=== PATIENT | female | born 1990 | race African-American/Black ===

== ENCOUNTER 2016-03-29 00:37 | Inpatient (IN) | payer BC, OTHER ==
[2016-03-29] VITALS (36 sets, daily range): BP systolic 80–128; BP diastolic 52–85; PULSE 83–123; RESP 18–20; TEMP 97.9
[~2016-03-29] VITALS: Ht 157.5 cm; Wt 88.9 kg
[~2016-03-29 00:37] MED LIST: CYCL5TAB PO; FERR325T PO; PREN0.01 PO
--- NOTE | 2016-03-29 01:46 | PD ---
HPI Chief Complaint Vaginal pressure Date Seen: Mar 29, 2016 Time Seen: 01:10 Travel History International Travel<30 Days: No Contact w/Intl Traveler<30Days: No Known Affected Area: No History of Present Illness HPI 25 year old at 38/1 presents to OB ED with complaints of vaginal pressure and low back pain. +FM. Reports she is having contractions and they are becoming slightly more intense with shorter intervals. Denies loss of fluid. She does states she had a small amount of vaginal bleeding this past Thursday but no vaginal bleeding since then. Denies dysuria, headaches, visual changes, edema. Rubella immune. Hep B negative. GBS negative. PCP is Dr. Gabo Avery. Para: 0 : 2 History Past Medical History Narrative Medical Anemia Obstetric History Obstetric History Past Surgical History Surgical History: No Previous Surgery Family History Family History: Negative Social History Alcohol Use: No Tobacco Use: No Substance Abuse: No Allergies-Medications (Allergen,Severity, Reaction): Coded Allergies: No Known Allergies (Unverified , 03/25/16) Home Meds Active Scripts Cyclobenzaprine (Flexeril)5 Mg Tab5 Mg PO HS #30 TAB Ref 1 Prov:Gabo Avery MD R3 03/03/16 Vitamins 1 Tab PO DAILY #30 TAB Ref 3 Prov:Gabo Avery MD R3 11/13/15 Reported Medications Ferrous Sulfate 325 Mg [id number] Mg PO DAILY #30 TAB Ref 0 02/06/16 Review of Systems General / Constitutional: No: Fever, Chills Eyes: No: Visual changes HENT: No: Headaches Cardiovascular: No: Chest Pain or Discomfort, Palpitations, Edema Respiratory: No: Short of Breath Genitourinary: No: Urgency, Dysuria, Hematuria Musculoskeletal: No: Edema Physical Exam Narrative GENERAL: Well-nourished, well-developed patient. SKIN: Warm and dry. HEAD: Normocephalic and atraumatic. EYES: No scleral icterus. No injection or drainage. ENT: No nasal drainage noted. Mucous membranes pink. Airway patent. NECK: Supple, trachea midline. No JVD. CARDIOVASCULAR: Regular rate and rhythm without murmurs, gallops, or rubs. RESPIRATORY: Breath sounds equal bilaterally. No accessory muscle use. ABDOMEN/GI: Abdomen soft, non-tender, bowel sounds present, no rebound, no guarding Gravid to 38 weeks size GENITOURINARY: Cervix: posterior Dilatation: 4cm Effacement: 70% Station: -2 Presentation: vertex Membranes: intact Uterine Contractions: irregular FHT's: Category: I Baseline: 130 Reactive: Yes Variability: moderate Decels: none EXTREMITIES: No cyanosis or edema. BACK: Nontender without obvious deformity. No CVA tenderness. NEUROLOGICAL: Awake and alert. Motor and sensory grossly within normal limits. Normal speech. Data Data Vital Signs Reviewed: Yes Orders Urinalysis - C+S If Indicated (03/29/16 01:24) ^ Non Stress Test (03/29/16 01:24) MDM Medical Record Reviewed: Yes Interpretation(s) 25 year old at 38/1 weeks gestation presents to OB ED with complaints of vaginal pressure. 1. Stage I active phase labor - Category I tracing, reassuring - Cervix: initially 4/70%/-2; membranes intact - Repeat exam demonstrates cervical change to 5-6cm - Will admit to L&D - Amnisure negative - Will obtain UA - GBS negative - Continue routine expectant management Fermin Garnica Dr., MD R1 Mar 29, 2016 01:46
[2016-03-29 02:06] LABS: BACTERIA, URINE OCC /hpf; BLOOD, URINE NEG (NEG); COMMENT (UR) CULTURE INDICATED; CULTURE IF INDICATED CULTURE INDICATED; GLUCOSE,URINE NEG (NEG); KETONE, URINE 10 mg/dL (NEG); MUCUS URINE FEW /lpf (OCC); NITRITE,URINE NEG (NEG); SQUAMOUS EPITHELIAL CELL URINE 17 /hpf (0-5); URINE COLOR YELLOW (YELLW/STRAW)
[2016-03-29] MEDS ORDERED: LACTATED RINGER'S 1000 ML INJ 1,000 ML IV PRN (02:42)
[2016-03-29] MEDS ORDERED: LACTATED RINGER'S 1000 ML INJ 1,000 ML IV SCH (02:42)
[2016-03-29] MEDS ORDERED: SODIUM CHLORID 0.9% 500 ML INJ 500 ML IV PRN (02:45)
[2016-03-29] MEDS ORDERED: LIDOCAINE HCL 1% 50 ML VIAL INFIL PRN (02:45)
[2016-03-29] MEDS ORDERED: LIDOCAINE HCL 1% 50 ML VIAL I-DERMAL PRN (02:45)
[2016-03-29] MEDS ORDERED: CITRIC ACID-SODIUM CITRATE LIQ 30 ML UDC PO SCH ×2 (02:45→22:30)
[2016-03-29] MEDS ORDERED: MINERAL OIL 10 ML VIAL TOPICAL PRN (02:45)
[2016-03-29] MEDS ORDERED: OXYTOCIN 30 UNITS-500ML PREMIX 500 ML IV ONE ×2 (02:45→22:30)
--- NOTE | 2016-03-29 02:51 | HHI.HP ---
History & Physical H&P Chief Complaint Vaginal pressure Date Seen: Mar 29, 2016 Time Seen: 01:10 Travel History International Travel<30 Days: No Contact w/Intl Traveler<30Days: No Known Affected Area: No History of Present Illness HPI 25 year old at 38/1 presents to OB ED with complaints of vaginal pressure and low back pain. +FM. Reports she is having contractions and they are becoming slightly more intense with shorter intervals. Denies loss of fluid. She does states she had a small amount of vaginal bleeding this past Thursday but no vaginal bleeding since then. Denies dysuria, headaches, visual changes, edema. Rubella immune. Hep B negative. GBS negative. PCP is Dr. Gabo Avery. Para: 0 : 2 Past Medical History Narrative Medical Anemia Obstetric History Obstetric History Past Surgical History Surgical History: No Previous Surgery Family History Family History: Negative Social History Alcohol Use: No Tobacco Use: No Substance Abuse: No (Allergen,Severity, Reaction): Coded Allergies: No Known Allergies (Unverified , 03/25/16) Home Meds Active Scripts Cyclobenzaprine (Flexeril)5 Mg Tab5 Mg PO HS #30 TAB Ref 1 Prov:Gabo Avery MD R3 03/03/16 Vitamins 1 Tab PO DAILY #30 TAB Ref 3 Prov:Gabo Avery MD R3 11/13/15 Reported Medications Ferrous Sulfate 325 Mg [id number] Mg PO DAILY #30 TAB Ref 0 02/06/16 Review of Systems General / Constitutional: No: Fever, Chills Eyes: No: Visual changes HENT: No: Headaches Cardiovascular: No: Chest Pain or Discomfort, Palpitations, Edema Respiratory: No: Short of Breath Genitourinary: No: Urgency, Dysuria, Hematuria Musculoskeletal: No: Edema Physical Exam Narrative GENERAL: Well-nourished, well-developed patient. SKIN: Warm and dry. HEAD: Normocephalic and atraumatic. EYES: No scleral icterus. No injection or drainage. ENT: No nasal drainage noted. Mucous membranes pink. Airway patent. NECK: Supple, trachea midline. No JVD. CARDIOVASCULAR: Regular rate and rhythm without murmurs, gallops, or rubs. RESPIRATORY: Breath sounds equal bilaterally. No accessory muscle use. ABDOMEN/GI: Abdomen soft, non-tender, bowel sounds present, no rebound, no guarding Gravid to 38 weeks size GENITOURINARY: Cervix: posterior Dilatation: 4cm Effacement: 70% Station: -2 Presentation: vertex Membranes: intact Uterine Contractions: irregular FHT's: Category: I Baseline: 130 Reactive: Yes Variability: moderate Decels: none EXTREMITIES: No cyanosis or edema. BACK: Nontender without obvious deformity. No CVA tenderness. NEUROLOGICAL: Awake and alert. Motor and sensory grossly within normal limits. Normal speech. Interpretation(s) 25 year old at 38/1 weeks gestation presents to OB ED with complaints of vaginal pressure. 1. Stage I active phase labor - Category I tracing, reassuring - Cervix: initially 4/70%/-2; membranes intact - Repeat exam demonstrates cervical change to 5-6cm - Will admit to L&D - Amnisure negative - Will obtain UA - GBS negative - Continue routine expectant management Fermin Garnica Dr., MD R1 Mar 29, 2016 02:51
[2016-03-29] MEDS ORDERED: SODIUM CHLOR 0.9% 1000 ML INJ 1,000 ML IV PRN (03:02)
[2016-03-29] MEDS ORDERED: fentaNYL 2MCG-BUPIV 0.125% INJ 100 ML ONE ×2 (03:44→11:24)
[2016-03-29 04:21] LABS: AUTOMATED NEUTROPHIL # 9.2 TH/MM3 (1.8-7.7); BASOPHIL % 0.1 % (0.0-2.0); EOSINOPHIL % 0.3 % (0.0-4.0); HEMATOCRIT 34.2 % (35.0-46.0); HEMO FLAGS DIFF FINAL; LYMPH % 14.5 % (9.0-44.0); LYMPHOCYTE # 1.7 TH/MM3 (1.0-4.8); MEAN CELL VOLUME 90.2 FL (80.0-100.0); MEAN CORPUSCULAR HEMOGLOBIN 30.9 PG (27.0-34.0); MEAN CORPUSCULAR HGB CONC 34.2 % (32.0-36.0); MONO % 6.4 % (0.0-8.0); NEUT % 78.7 % (16.0-70.0); PLATELET COUNT 228 TH/MM3 (150-450); RED BLOOD COUNT 3.79 MIL/MM3 (4.00-5.30); RED CELL DISTRIBUTION WIDTH 15.6 % (11.6-17.2); WHITE BLOOD COUNT 11.7 TH/MM3 (4.0-11.0)
[2016-03-29] MEDS ORDERED: CEPHALEXIN MONOHYDRATE 500 MG CAP PO SCH (06:00)
[2016-03-29] MEDS ORDERED: ONDANSETRON ODT 4 MG TAB PO PRN (06:30)
[2016-03-29] MEDS ORDERED: ALUMINUM/MAGNESIUM/SIMETH 30 ML CUP PO PRN (06:30)
[2016-03-29] MEDS ORDERED: DOCUSATE SODIUM 50 MG/SENNA 8.6 MG TAB PO PRN (06:30)
[2016-03-29] MEDS ORDERED: ZOLPIDEM TARTRATE 5 MG TAB PO PRN ×2 (06:30→22:30)
[2016-03-29] MEDS ORDERED: ACETAMINOPHEN 325 MG TAB PO PRN ×2 (06:30→22:30)
[2016-03-29] MEDS ORDERED: IBUPROFEN 600 MG TAB PO PRN (06:30)
[2016-03-29] MEDS ORDERED: SODIUM CHLORIDE 0.9% FLUSH 5 ML FLUSH IV PRN ×2 (06:30→22:30)
[2016-03-29] MEDS ORDERED: WITCH HAZEL 50%/GLYCERIN 12.5% 40 PAD JAR TOPICAL PRN (06:30)
[2016-03-29] MEDS ORDERED: BENZOCAINE 20% TOPICAL SPRAY 60 ML CAN TOPICAL PRN (06:30)
--- NOTE | 2016-03-29 07:28 | PD.LABORPN ---
Subjective Subjective 25 y/o presenting at 38/0 weeks gestation in active labor. She has been augmentin with pitocin at 03-30-29 and AROM at 0630. CLear fluid. Cat 1 tracing : baseline 135 bpm, ++ acels, moderate variability Cervical exam: 6 cm, 70% effaced -2 station [place]: Srinath q 5-6 minutes. Patient is comfortable with epidural in place. Pete in place. wdw Dr. Severo Avery who is out of town and will not be able to attend the delivery. Objective Vital Signs Vital Signs Date Time Temp Pulse Resp B/P Pulse Ox O2 Delivery O2 Flow Rate FiO2 03/29/16 05:15 92 128/77 03/29/16 05:10 98 03/29/16 05:05 93 03/29/16 05:00 109 128/69 03/29/16 04:55 108 124/73 03/29/16 04:50 100 125/69 03/29/16 04:45 99 127/85 03/29/16 04:40 87 121/82 03/29/16 04:40 91 03/29/16 04:35 89 125/74 03/29/16 04:30 87 118/75 03/29/16 04:26 88 116/80 03/29/16 04:20 18 Objective Pelvic Exam: Cervix: [-] Dilatation: [-] Effacement: [-] Station: [-] Presentation: [-] Membranes: [intact or ruptured] Uterine Contractions: [-] FHT's: Category: [-] Baseline: [-] Reactive: [-] Variability: [-] Decels: [-] Rahat Cortez MD R2 Mar 29, 2016 07:28
[2016-03-29] MEDS ORDERED: SODIUM CHLORIDE 0.9% FLUSH 5 ML FLUSH IV SCH (09:00)
[2016-03-29] MEDS ORDERED: OXYTOCIN 30 UNITS-500ML PREMIX 500 ML IV SCH (10:15)
[2016-03-29] MEDS ORDERED: ePHEDrine/NS 50 MG/5 ML SYR IV PRN (13:30)
[2016-03-29] MEDS ORDERED: fentaNYL 2MCG-BUPIV 0.125% INJ 100 ML EPIDURAL SCH (13:30)
[2016-03-29] MEDS ORDERED: NO SYSTEM NARCOTICS XX PRN (13:30)
[2016-03-29] MEDS ORDERED: DO NOT ADMINISTER ANTICOAGULANTS XX PRN (13:30)
[2016-03-29] MEDS ORDERED: DIPHTH/TETANUS/ACEL PERTUSSIS (BOOSTER) 0.5 ML VIAL/PFS IM ONE (16:00)
[2016-03-29] MEDS ORDERED: MEASLES, MUMPS, RUBELLA VACCINE 0.5 ML VIAL SQ ONE (16:00)
[2016-03-29] MEDS ORDERED: BUPIVACAINE HCL PF 0.25% 10 ML VIAL ONE (16:04)
[2016-03-29] MEDS ORDERED: LIDOCAINE HCL 1% PF 30 ML VIAL ONE (16:04)
--- NOTE | 2016-03-29 19:51 | PD.LABORPN ---
Subjective Subjective Patient is complaining of back pain, epidural in place, reports movement and contractions, no bleeding, patient requests section due to severe pain Objective Vital Signs Vital signs is stable Objective Pelvic Exam: Cervix: Fully dilated, 100% effaced and +2 station, there is some caput, fetus is in direct occiput posterior position Dilatation: Fully dilated Effacement: 80% effaced Station: +2station Presentation: Cephalic Membranes: Ruptured Uterine Contractions: Srinath every 3 minutes, Pitocin is running at 2 mU /m. FHT's: Category: one Baseline: 140s Reactive: Yes Variability: Moderate Decels: None Assessment/Plan Problem List: (1) Term Assessment and Plan Term at 38 weeks and 1 day of gestation in active labor, reassuring heart status, and direct occiput posterior position, patient requests section. Patient says that she is tired. I have reviewed the current progress of labor with the patient and the family and I stressed the need to give time to see if the fetus will descend for patient to have vaginal delivery. I also discussed the need for a primary section if necessary. All questions were answered to the patient's satisfaction. We will continue to monitor progress of labor, continuous heart monitoring. Continue current management. Pain management. We'll reevaluate in 1-2 hours. Rishabh Felix MD Mar 29, 2016 19:50
[2016-03-29] MEDS ORDERED: ceFAZolin INJ 1,000 MG VIAL ONE (20:57)
[2016-03-29] MEDS ORDERED: MORPHINE SULFATE PF 5 MG/10 ML VIAL ONE (21:02)
[2016-03-29] MEDS ORDERED: OXYTOCIN 10 UNIT/ML AMP ONE (21:03)
[2016-03-29] MEDS ORDERED: ACETAMINOPHEN 1000 MG/100 ML VIAL IV ONE ×2 (21:03→22:30)
[2016-03-29] MEDS ORDERED: ONDANSETRON HCL 4 MG/2 ML VIAL ONE (21:03)
[2016-03-29] MEDS ORDERED: EPIDURAL-NALOXONE HCL 0.4 MG/ML AMP IV PRN (21:20)
[2016-03-29] MEDS ORDERED: EPIDURAL-NO SYSTEMIC NARCOTICS XX PRN (21:20)
[2016-03-29] MEDS ORDERED: EPIDURAL-DIPHENHYDRAMINE HCL 50 MG CAP PO PRN (21:20)
[2016-03-29] MEDS ORDERED: EPIDURAL-DO NOT ADMINISTER ANTICOAGULANTS XX PRN (21:20)
[2016-03-29] MEDS ORDERED: EPIDURAL-DIPHENHYDRAMINE HCL 50 MG/ML VIAL IV PUSH PRN (21:20)
[2016-03-29] MEDS ORDERED: SODIUM BICARBONATE 8.4% SOLN 50 MEQ/50 ML VIAL IV ONE (21:30)
[2016-03-29] MEDS ORDERED: LACTATED RINGER'S 1000 ML INJ 1,000 ML IV ONE (21:30)
[2016-03-29] MEDS ORDERED: LIDOCAINE HCL 2% 20 ML VIAL NB ONE (21:30)
[2016-03-29] MEDS ORDERED: METHYLERGONOVINE MALEATE 0.2 MG/ML VIAL ONE (21:44)
[2016-03-29] MEDS ORDERED: ceFAZolin 2 GM PREMIX 50 ML IV SCH (22:00)
[2016-03-29] MEDS ORDERED: oxyCODONE/ACETAMINOPHEN 5 MG/325 MG TAB PO PRN (22:30)
[2016-03-29] MEDS ORDERED: KETOROLAC TROMETHAMINE 60 MG/2 ML (IM) VIAL IM PRN (22:30)
[2016-03-29] MEDS ORDERED: ONDANSETRON HCL 4 MG/2 ML VIAL IV PUSH PRN (22:30)
[2016-03-29] MEDS ORDERED: SIMETHICONE 80 MG CHEWABLE TAB PO PRN (22:30)
--- NOTE | 2016-03-29 22:32 | PD.OP ---
Operative Report Date of Surgery: Mar 29, 2016 Preoperative Diagnosis: (1) with 38 completed weeks gestation (2) Arrest of descent, delivered, current hospitalization 1. 25-year-old 010 at 38 weeks and 1 day of gestation in active labor. 2. Arrest of descent Postoperative Diagnosis: (1) with 38 completed weeks gestation (2) Arrest of descent, delivered, current hospitalization Same Procedure: Primary low segment transverse section via Pfannenstiel skin incision. Anesthesia: Epidural Anesthesiologist: Chavo SPEARS) Surgeon: Rishabh Felix M.D Transportation Design Engineer(s): Lena Bolivar RN Resident Surgeon: None Operation and Findings: Operation and Findings: Estimated blood loss: 700 mL, urine output is 150 mL of clear urine at the end of the procedure, IV fluids: 1500 mL of Ringer's lactate Complications: None Specimens: Placenta. Findings: Live male infant in cephalic presentation, LOT position, Apgars 8 at 1 minute and 9 at 5 minutes, nursery team present at delivery, weight 3715 g, 8 lbs. 3 oz. Time of delivery 21.34 hours. Normal uterus, tubes, and ovaries. Indications: 25-year-old at 38 weeks and 1 day of gestation who presented in labor , received Pitocin for augmentation of labor and progress well in labor, however she developed arrest of descent for several hours and the need for a primary section were discussed with the patient at this point The risks,benefits, indications and alternatives of the procedure were reviewed with the patient including but not limited to increased risks of bleeding, infection, damage to the bladder, bowel, ureters, blood vessels and nerves. Increased risks of DVT and PE. All questions were answered and informed consent was obtained. Procedures: After informed consent was obtained the patient was taken to the operating room where epidural anesthesia was found to be adequate. She was then prepped and draped in the normal sterile fashion in the dorsal supine position with a leftward tilt. A Pfannenstiel skin incision was then made with the scalpel and carried through to the underlying layer of fascia with the Bovie. The fascia was incised in the midline and incision extended laterally with the Nichols scissors. The superior aspect of the fascial incision was then grasped with Chin clamps, elevated, and the underlying rectus muscles dissected off bluntly. Attention was then turned to the inferior aspect of this incision which in in a similar fashion was grasped, tented up with the Chin clamps and the rectus muscle dissected off bluntly. The rectus muscles were then in the midline and the peritoneum identified, tented up, and entered sharply with the Metzenbaum scissors. The peritoneal incision was then extended superiorly and inferiorly with good visualization of the bladder. The bladder blade was then inserted and the vesicouterine peritoneum identified, grasped with the pickups, and entered sharply with the Metzenbaum scissors. This incision was then extended laterally and the bladder flap created digitally. The bladder blade was then reinserted and the lower uterine segment incised in a transverse fashion with the scalpel. The uterine incision was then extended laterally with the bandage scissors. The bladder blade was removed and the infant's head was delivered atraumatically. The was noted to be in a left occiput transverse position. The mouth and nose were suctioned with a bulb suction and the cord was clamped and cut. The was handed off to the waiting nursing team. Cord blood was obtained. The placenta was then removed manually, the uterus was externalized and cleared of all clots and debris. The uterine incision was repaired with 0 Vicryl in a running locked fashion. A second layer of the same suture was used to obtain excellent hemostasis. The bladder flap was repaired with 3-0 Vicryl in a running stitch.The uterus and the tubes were then returned to the abdomen. The gutters were cleared of all clots and debris and the peritoneum was closed with the 2-0 chromic suture. The fascia was reapproximated with 0 Vicryl in a running fashion. The skin was closed in a subcuticular fashion using 3-0 Monocryl. Dermabond was applied to the incision as well as Steri-Strips. The patient tolerated the procedure well. All sponges, laps, needle and instrument counts were correct 2. The patient received 2 g of Ancef prior to surgery. The patient was taken to the recovery area in stable condition. Rishabh Felix MD, Jonathan G MD Mar 29, 2016 22:32
[2016-03-30] MEDS ORDERED: LACTATED RINGER'S 1000 ML INJ 1,000 ML IV SCH (03:27)
[2016-03-30] MEDS: ACETAMINOPHEN 1000 MG/100 ML VIAL IV SCH ×2 (05:45→13:20)
[2016-03-30 05:54] LABS: AUTOMATED NEUTROPHIL # 14.3 TH/MM3 (1.8-7.7); BASOPHIL # 0.1 TH/MM3 (0-0.2); BASOPHIL % 0.4 % (0.0-2.0); HEMATOCRIT 27.6 % (35.0-46.0); HEMO FLAGS DIFF FINAL; LYMPH % 5.9 % (9.0-44.0); MEAN CELL VOLUME 90.9 FL (80.0-100.0); MEAN CORPUSCULAR HEMOGLOBIN 30.1 PG (27.0-34.0); MEAN CORPUSCULAR HGB CONC 33.1 % (32.0-36.0); MONO % 6.5 % (0.0-8.0); NEUT % 87.2 % (16.0-70.0); PLATELET COUNT 197 TH/MM3 (150-450); RED BLOOD COUNT 3.04 MIL/MM3 (4.00-5.30); RED CELL DISTRIBUTION WIDTH 15.5 % (11.6-17.2); WHITE BLOOD COUNT 16.4 TH/MM3 (4.0-11.0)
[2016-03-30] MEDS ORDERED: OXYTOCIN 30 UNITS-500ML PREMIX 500 ML IV PRN (08:30)
[2016-03-30] MEDS: IBUPROFEN 600 MG TAB PO PRN ×3 (09:35→22:31)
[2016-03-30] MEDS: oxyCODONE/ACETAMINOPHEN 5 MG/325 MG TAB PO PRN ×3 (09:35→22:31)
--- NOTE | 2016-03-30 11:42 | HHI.OB ---
Subjective Post Operative Day: 1 Remarks 25 year old female s/p due to arrest at 38/1 wks gestation , POD 1. AFVSS. Patient reports she is feeling well. Bleeding is decreasing and pain is well-controlled. She is breast feeding and bonding well with baby. Limited ambulation as patient continues to have catheter and this morning due to decreased urinary output yesterday evening. She is tolerating a liquid diet without nausea or vomiting and went like to increase food options. She has not had a bowel movement. She has not passed gas. Denies chest pain, dysuria, shortness of breath, or calf pain. Objective Result Diagram: 03/30/16 0542 Objective Remarks GENERAL: Well-nourished, well-developed patient. CARDIOVASCULAR: Regular rate and rhythm without murmurs, gallops, or rubs. RESPIRATORY: Breath sounds equal bilaterally. No accessory muscle use. ABDOMEN/GI: Abdomen soft, non-tender Incision: Clean, dry and intact bandage over incision. Fundus: Firm, non-tender at umbilicus. GENITOURINARY: Light to moderate bleeding. EXTREMITIES: No cyanosis or edema, non-tender, without signs of DVT. Medications and IVs Current Medications Medications (Trade) Dose Ordered Sig/Lalita Route Start Time Stop Time Status Last Admin (Lr 1000 ml Inj) 1,000 ml @ 100 mls/hr Q10H IV 03/30/16 03:27 03/30/16 23:26 (NS Flush) 2 ml BID IV 03/29/16 22:30 (NS Flush) 2 ml UNSCH PRN IV 03/29/16 22:30 (Mylicon Chew) 80 mg QID PRN PO 03/29/16 22:30 (Tylenol) 650 mg Q6H PRN PO 03/29/16 22:30 (Motrin) 600 mg Q6H PRN PO 03/29/16 22:30 03/30/16 09:35 (Toradol Inj) 30 mg Q6H PRN IM 03/29/16 22:30 03/30/16 22:29 03/30/16 01:26 (Percocet 5-325 Mg) 1 tab Q4H PRN PO 03/29/16 22:30 03/30/16 09:35 Oxycodone/ Acetaminophen 2 tab 2 tab Q4H PRN PO 03/29/16 22:30 (Ancef Inj/NS Inj) 100 ml @ 200 mls/hr Q8H IV 03/30/16 05:00 03/30/16 13:29 03/30/16 05:00 (Shira-Colace) 2 tab Q12H PRN PO 03/29/16 22:30 (Ambien) 5 mg HS PRN PO 03/29/16 22:30 (M-M-R Ii Inj) 0.5 ml ONCE ONCE SQ 03/30/16 16:00 03/30/16 16:01 (Boostrix Inj) 0.5 ml ONCE ONCE IM 03/30/16 16:00 03/30/16 16:01 (Zofran Inj) 4 mg Q6H PRN IV PUSH 03/29/16 22:30 03/30/16 09:35 Miscellaneous Information NO SYSTEMIC NARCOTICS TO BE GIVEN FO... UNSCH PRN XX 03/29/16 21:20 03/30/16 21:19 (Narcan Inj) 0.4 mg UNSCH PRN IV 03/29/16 21:20 03/30/16 21:19 (Benadryl Inj) 25 mg Q6H PRN IV PUSH 03/29/16 21:20 03/30/16 21:19 (Benadryl) 50 mg Q6H PRN PO 03/29/16 21:20 03/30/16 21:19 Miscellaneous Information ALL NURSING DEPARTMENTS UNSCH PRN XX 03/29/16 21:20 03/30/16 21:19 (Ofirmev Inj) 1,000 mg Q8H IV 03/29/16 21:20 03/30/16 13:21 03/30/16 05:45 Assessment/Plan Problem List: (1) Term Assessment and Plan 25 yo female s/p due to arrest POD 1. - AFVSS - Continue routine care * Discontinue Pete today - Motrin and Percocet PRN pain - Encourage OOB - Pelvic rest x 6 wks. Will need a f/u appt in 1ks for incision check. - Contraception: Options discussed, undecided at this time. - Anticipate D/C and 1-2 days. Recommend follow-up with Dr. Avery in one week dw Dr. Marvin Gómez,Elizabeth Jeter MD R2 Mar 30, 2016 11:42
[2016-03-30] MEDS ORDERED: MEASLES, MUMPS, RUBELLA VACCINE 0.5 ML VIAL SQ ONE (16:00)
[2016-03-30] MEDS ORDERED: DIPHTH/TETANUS/ACEL PERTUSSIS (BOOSTER) 0.5 ML VIAL/PFS IM ONE (16:00)
[2016-03-30] MEDS: DOCUSATE SODIUM 50 MG/SENNA 8.6 MG TAB PO PRN (16:23)
[2016-03-31] MEDS: oxyCODONE/ACETAMINOPHEN 5 MG/325 MG TAB PO PRN ×3 (04:21→16:59)
[2016-03-31] MEDS: IBUPROFEN 600 MG TAB PO PRN ×4 (04:21→23:48)
--- NOTE | 2016-03-31 07:14 | HHI.OB ---
Subjective Post Operative Day: 2 Remarks 25 year old female s/p due to arrest at 38/1 wks gestation , POD 2. AFVSS. Patient reports she is feeling well. Bleeding is decreasing and pain is well-controlled. She is breast feeding and bonding well with baby. Ambulating without difficulties. She is tolerating a diet without nausea or vomiting. She has not had a bowel movement. She has not passed gas but feels like it it coming. Denies chest pain, dysuria, shortness of breath, or calf pain. Objective Result Diagram: 03/30/16 0542 Objective Remarks GENERAL: Well-nourished, well-developed patient. CARDIOVASCULAR: Regular rate and rhythm without murmurs, gallops, or rubs. RESPIRATORY: Breath sounds equal bilaterally. No accessory muscle use. ABDOMEN/GI: Abdomen soft, non-tender Incision: Clean, dry and intact incision. Fundus: Firm, non-tender at umbilicus. GENITOURINARY: Light to moderate bleeding. EXTREMITIES: No cyanosis or edema, non-tender, without signs of DVT. Medications and IVs Current Medications Medications (Trade) Dose Ordered Sig/Lalita Route Start Time Stop Time Status Last Admin (NS Flush) 2 ml BID IV 03/29/16 22:30 (NS Flush) 2 ml UNSCH PRN IV 03/29/16 22:30 (Mylicon Chew) 80 mg QID PRN PO 03/29/16 22:30 (Tylenol) 650 mg Q6H PRN PO 03/29/16 22:30 (Motrin) 600 mg Q6H PRN PO 03/29/16 22:30 03/31/16 04:21 (Percocet 5-325 Mg) 1 tab Q4H PRN PO 03/29/16 22:30 03/31/16 04:21 (Percocet 5-325 Mg) 2 tab Q4H PRN PO 03/29/16 22:30 (Shira-Colace) 2 tab Q12H PRN PO 03/29/16 22:30 03/30/16 16:23 (Ambien) 5 mg HS PRN PO 03/29/16 22:30 (Zofran Inj) 4 mg Q6H PRN IV PUSH 03/29/16 22:30 03/30/16 09:35 Assessment/Plan Problem List: (1) Term Assessment and Plan 25 yo female s/p due to arrest POD 2. - AFVSS - Continue routine care - Motrin and Percocet PRN pain - Encourage OOB - Pelvic rest x 6 wks. Will need a f/u appt in 1wk for incision check. - Contraception: Options discussed, would like to get Depo-Provera now and then get Nexplanon as an outpatient - Anticipate D/C tomorrow. Recommend follow-up with Dr. Avery in one week wdw Elizabeth Moralez MD R2 Mar 31, 2016 07:13
[2016-03-31] MEDS ORDERED: medroxyPROGESTERone ACETATE SUSP 150 MG/ML SYRINGE IM ONE (07:30)
[2016-03-31] MEDS: SODIUM CHLORIDE 0.9% FLUSH 5 ML FLUSH IV SCH ×2 (09:00→21:00)
--- NOTE | 2016-03-31 09:10 | HHI.OB ---
Subjective Remarks seen with FM residents agree with their eval and plan Objective Objective Remarks GENERAL: Well-nourished, well-developed patient. CARDIOVASCULAR: Regular rate and rhythm without murmurs, gallops, or rubs. RESPIRATORY: Breath sounds equal bilaterally. No accessory muscle use. ABDOMEN/GI: Abdomen soft, non-tender. Fundus: Firm, non-tender at umbilicus. GENITOURINARY: Light to moderate bleeding. EXTREMITIES: No cyanosis or edema, non-tender, without signs of DVT. Medications and IVs Current Medications Medications (Trade) Dose Ordered Sig/Lalita Route Start Time Stop Time Status Last Admin (NS Flush) 2 ml BID IV 03/29/16 22:30 (NS Flush) 2 ml UNSCH PRN IV 03/29/16 22:30 (Mylicon Chew) 80 mg QID PRN PO 03/29/16 22:30 (Tylenol) 650 mg Q6H PRN PO 03/29/16 22:30 (Motrin) 600 mg Q6H PRN PO 03/29/16 22:30 03/31/16 04:21 (Percocet 5-325 Mg) 1 tab Q4H PRN PO 03/29/16 22:30 03/31/16 04:21 (Percocet 5-325 Mg) 2 tab Q4H PRN PO 03/29/16 22:30 (Shira-Colace) 2 tab Q12H PRN PO 03/29/16 22:30 03/30/16 16:23 (Ambien) 5 mg HS PRN PO 03/29/16 22:30 (Zofran Inj) 4 mg Q6H PRN IV PUSH 03/29/16 22:30 03/30/16 09:35 Assessment/Plan Problem List: (1) Term Assessment and Plan 25 yo female s/p due to arrest POD 2. - AFVSS - Continue routine care - Motrin and Percocet PRN pain - Encourage OOB - Pelvic rest x 6 wks. Will need a f/u appt in 1wk for incision check. - Contraception: Options discussed, would like to get Depo-Provera now and then get Nexplanon as an outpatient - Anticipate D/C tomorrow. Recommend follow-up with Dr. Avery in one week wdw Dr. Marvin Wong,Marcelo Huber II, MD Mar 31, 2016 09:10
[2016-03-31] MEDS: DOCUSATE SODIUM 50 MG/SENNA 8.6 MG TAB PO PRN ×2 (10:28→23:46)
[2016-04-01 00:28] VITALS: RESP 18
[2016-04-01] MEDS: oxyCODONE/ACETAMINOPHEN 5 MG/325 MG TAB PO PRN (06:04)
[2016-04-01] MEDS: IBUPROFEN 600 MG TAB PO PRN (06:04)
--- NOTE | 2016-04-01 06:46 | HHI.DCPOC ---
Discharge Care Plan Diagnosis: (1) with 38 completed weeks gestation (2) Arrest of descent, delivered, current hospitalization Report Symptoms to Your Doctor -Temperate above 100.5 degrees -Redness, of incision or excessive or foul smelling drainage -Unusual pain or calf pain -Increased vaginal bleeding -Painful or difficulty urinating -Feelings of extreme sadness or anxiety after 2 weeks Goals to Promote Your Health * To prevent worsening of your condition and complications * To maintain your health at the optimal level Directions to Meet Your Goals Take your medications as prescribed Follow your dietary instruction Follow activity as directed Ensure plenty of rest for recovery Drink fluids for hydration Keep your appointments as scheduled Take your immunizations and boosters as scheduled If your symptoms worsen call your PCP, if no PCP go to Urgent Care Center or Emergency Room Smoking is Dangerous to Your Health. Avoid second hand smoke Call the 24-hour crisis hotline for domestic abuse at Nomi Archer MD R1 Apr 01, 2016 06:46
[2016-04-01] MEDS ORDERED: IBUP-232 PO (07:21)
[2016-04-01] MEDS ORDERED: SENN1TAB PO (07:21)
[2016-04-01] MEDS ORDERED: OXYC1TAB63 PO (08:02)
--- NOTE | 2016-04-01 08:16 | HHI.OB ---
Subjective Post Operative Day: 3 Remarks Patient is doing great. She is ambulating, urinating, and passing gas. Her pain is well controlled with Motrin and Percocet. No chest pain or SOB. Objective Vitals/I&O Vital Signs Date Time Temp Pulse Resp B/P Pulse Ox O2 Delivery O2 Flow Rate FiO2 04/01/16 00:28 18 04/01/16 00:28 18 Result Diagram: 03/30/16 0542 Objective Remarks GENERAL: Well-nourished, well-developed patient. CARDIOVASCULAR: Regular rate and rhythm without murmurs, gallops, or rubs. RESPIRATORY: Breath sounds equal bilaterally. No accessory muscle use. ABDOMEN/GI: Abdomen soft, non-tender Incision: Clean, dry and intact incision. Fundus: Firm, non-tender at umbilicus. GENITOURINARY: Light to moderate bleeding. EXTREMITIES: No cyanosis or edema, non-tender, without signs of DVT. Medications and IVs Current Medications Medications (Trade) Dose Ordered Sig/Lalita Route Start Time Stop Time Status Last Admin (NS Flush) 2 ml BID IV 03/29/16 22:30 (NS Flush) 2 ml UNSCH PRN IV 03/29/16 22:30 (Mylicon Chew) 80 mg QID PRN PO 03/29/16 22:30 03/31/16 23:46 (Tylenol) 650 mg Q6H PRN PO 03/29/16 22:30 (Motrin) 600 mg Q6H PRN PO 03/29/16 22:30 04/01/16 06:04 (Percocet 5-325 Mg) 1 tab Q4H PRN PO 03/29/16 22:30 04/01/16 06:04 (Percocet 5-325 Mg) 2 tab Q4H PRN PO 03/29/16 22:30 03/31/16 23:47 (Shira-Colace) 2 tab Q12H PRN PO 03/29/16 22:30 03/31/16 23:46 (Ambien) 5 mg HS PRN PO 03/29/16 22:30 (Zofran Inj) 4 mg Q6H PRN IV PUSH 03/29/16 22:30 03/30/16 09:35 Assessment/Plan Problem List: (1) Term (2) Arrest of descent, delivered, current hospitalization Assessment and Plan 25 yo female s/p due to arrest POD 3. - AFVSS - Continue routine care - Motrin and Percocet PRN pain - Encourage OOB - Pelvic rest x 6 wks. Will need a f/u appt in 1wk for incision check. - Contraception: Options discussed, would like to get Depo-Provera now and then get Nexplanon as an outpatient - Anticipate D/C today. Recommend follow-up with Dr. Avery in one week [facility]. wdw Dr. Elkins. Rahat Cortez MD R2 Apr 01, 2016 08:16
== END 2016-04-01 12:28 | disposition home or self-care (01) | DRG 766 ==
LOC: HOBED 00:37 → H2EA 02:41 → H1EA 23:45
PROVIDERS: ADMIT Obstetrics & Gynecology; ATTEND Obstetrics & Gynecology
PROC: 10D00Z1 Extraction of Products of Conception, Low, Open Approach (ICD-10-PCS; principal; 2016-03-29)
PROC: 10907ZC Drainage of Amniotic Fluid, Therapeutic from Products of Conception, Via Natural or Artificial Opening (ICD-10-PCS; 2016-03-29)
PROC: 3E0S3CZ (ICD-10-PCS; 2016-03-29)
PROC: 00HU33Z Insertion of Infusion Device into Spinal Canal, Percutaneous Approach (ICD-10-PCS; 2016-03-29)
DX: O62.1 Secondary uterine inertia (principal); O99.013 Anemia complicating pregnancy, third trimester; D64.9 Anemia, unspecified; Z37.0 Single live birth; Z3A.38 38 weeks gestation of pregnancy
CPT/HCPCS: 59025; 81001; 84112; 85025; 86850; 86900; 86901; 87086; 90715; J0131; J0690; J1050; J1885; J2210; J2274; J2405; J2590; J7120; Q0163